=== PATIENT | female | born 1930 | race Caucasian/White ===

== ENCOUNTER 2016-05-07 14:03 | Emergency (ER) | payer MEDICARE ==
[2016-05-07 14:13] VITALS: TEMP 98.8
--- NOTE | 2016-05-07 14:51 | ED ---
General Adult HPI - General Chief complaint: Fall Stated complaint: Fall Time Seen by Provider: 05/07/16 14:19 Source: patient, EMS, RN notes reviewed Mode of arrival: EMS Limitations: no limitations - History of Present Illness Initial comments: Patient is a pleasant 86-year-old female presenting to the emergency department following a fall. Fall occurred 3 days ago. Symptoms of discomfort has progressively worsened since that time. Patient was unable to get up on her own today. Patient did need assistance going to the restroom. Patient has discomfort of the left back. No difficulty in breathing. Discomfort does increase and greatly with movement. There is question if patient had blood with using the restroom today. No abdominal pain. No reported head injury or loss of consciousness. Patient denies dyspnea - Related Data Home Medications Medication Instructions Recorded Confirmed Atorvastatin Calcium [Lipitor] 10 mg PO DAILY 05/07/16 05/07/16 Carbidopa-Levodopa 25-100 mg 1 tab PO DAILY 05/07/16 05/07/16 [Sinemet 25-100] Doxycycline Hyclate [Vibramycin] 100 mg PO BID 05/07/16 05/07/16 Levothyroxine Sodium [Synthroid] 100 mcg PO DAILY 05/07/16 05/07/16 Losartan [Cozaar] 50 mg PO DAILY 05/07/16 05/07/16 Meloxicam [Mobic] 7.5 mg PO BID 05/07/16 05/07/16 SILVER sulfADIAZINE CREAM 1 applic TOPICAL DAILY 05/07/16 05/07/16 [Silvadene Cream] Vit C/E/Zn/Coppr/Lutein/Zeaxan 1 cap PO DAILY 05/07/16 05/07/16 [Preservision Areds 2 Softgel] metroNIDAZOLE 0.75% CREAM 1 applic TOPICAL BID 05/07/16 05/07/16 Previous Rx's Medication Instructions Recorded traMADol HCl [Ultram] 50 mg PO Q6H PRN #20 tab 05/07/16 Allergies Allergy/AdvReac Type Severity Reaction Status Date / Time No Known Allergies Allergy Unverified 05/07/16 14:41 Review of Systems ROS Statement: Those systems with pertinent positive or pertinent negative responses have been documented in the HPI. ROS Other: All systems not noted in ROS Statement are negative. Constitutional: Denies: fever, chills Eyes: Denies: eye pain ENT: Denies: ear pain Respiratory: Denies: cough, dyspnea Cardiovascular: Denies: chest pain Endocrine: Denies: fatigue Gastrointestinal: Denies: vomiting Genitourinary: Denies: dysuria Musculoskeletal: Reports: back pain Skin: Reports: rash (Bruising) Neurological: Denies: headache Past Medical History Past Medical History: Unable to Obtain History of Any Multi-Drug Resistant Organisms: None Reported Past Surgical History: Unable to Obtain, Bladder Surgery Past Psychological History: No Psychological Hx Reported Smoking Status: Never smoker General Exam Limitations: no limitations General appearance: alert, in no apparent distress Head exam: Present: atraumatic Eye exam: Present: normal appearance, PERRL ENT exam: Present: normal oropharynx Neck exam: Present: normal inspection Respiratory exam: Present: normal lung sounds bilaterally, chest wall tenderness (Left posterior lateral ribs) Cardiovascular Exam: Present: regular rate, normal rhythm GI/Abdominal exam: Present: soft. Absent: tenderness Extremities exam: Present: normal inspection, full ROM. Absent: tenderness Back exam: Present: tenderness (Left lower posterior ribs with tenderness and ecchymosis. Mild tenderness lower thoracic spine.) Neurological exam: Present: alert. Absent: motor sensory deficit Psychiatric exam: Present: normal affect, normal mood Skin exam: Absent: rash Course Vital Signs 05/07/16 05/07/16 14:06 14:27 Temperature 98.8 F Pulse Rate 63 Respiratory 22 22 Rate Blood Pressure 161/82 O2 Sat by Pulse 98 Oximetry EKG Findings - EKG Comments: EKG Findings:: Sinus rhythm at 93 with premature supraventricular complexes. ID 152. QRS 86. QT 362. QTC 450. Normal axis. Normal QRS. Nonspecific ST- T. Medical Decision Making - Medical Decision Making Patient reexamined and resting comfortable in bed. Patient still has some discomfort. Potassium replaced. Case was discussed in detail with Dr. Dr. Lamar covering for Dr. Dr. Beebe who does agree with discharge. Patient and family updated on results and need for follow-up. - Lab Data Result diagrams: 05/07/16 15:35 05/07/16 15:35 Lab Results 05/07/16 05/07/16 05/07/16 Range/Units 14:55 15:00 15:35 WBC 14.6 H (3.8-10.6) k/uL RBC 5.33 (3.80-5.40) m/uL Hgb 16.0 (11.4-16.0) gm/dL Hct 47.7 H (34.0-46.0) % MCV 89.5 (80.0-100.0) fL MCH 29.9 (25.0-35.0) pg MCHC 33.5 (31.0-37.0) g/dL RDW 13.9 (11.5-15.5) % Plt Count 198 (150-450) k/uL PT (9.0-12.0) sec INR (<1.1) APTT (22.0-30.0) sec Sodium (137-145) mmol/L Potassium (3.5-5.1) mmol/L Chloride (98-107) mmol/L Carbon Dioxide (22-30) mmol/L Anion Gap mmol/L BUN (7-17) mg/dL Creatinine (0.52-1.04) mg/dL Est GFR (MDRD) Af Amer (>60 ml/min/1.73 sqM) Est GFR (MDRD) Non-Af (>60 ml/min/1.73 sqM) Glucose (74-99) mg/dL Calcium (8.4-10.2) mg/dL Total Bilirubin (0.2-1.3) mg/dL AST (14-36) U/L ALT (9-52) U/L Alkaline Phosphatase (38-126) U/L Total Protein (6.3-8.2) g/dL Albumin (3.5-5.0) g/dL Urine Color Yellow Urine Appearance Clear (Clear) Urine pH 5.5 (5.0-8.0) Ur Specific [place] 1.018 (1.001-1.035) Urine Protein 2+ H (Negative) Urine Glucose (UA) Negative (Negative) Urine Ketones Trace H (Negative) Urine Blood Small H (Negative) Urine Nitrate Negative (Negative) Urine Bilirubin Negative (Negative) Urine Urobilinogen <2.0 (<2.0) mg/dL Ur Leukocyte Esterase Trace H (Negative) Urine RBC 1 (0-5) /hpf Urine WBC 5 (0-5) /hpf Ur Squamous Epith Cells 1 (0-4) /hpf Amorphous Sediment Occasional H (None) /hpf Hyaline Casts 1 (0-2) /lpf Urine Mucus Occasional H (None) /hpf Stool Occult Blood Negative (Negative) 05/07/16 05/07/16 Range/Units 15:35 15:57 WBC (3.8-10.6) k/uL RBC (3.80-5.40) m/uL Hgb (11.4-16.0) gm/dL Hct (34.0-46.0) % MCV (80.0-100.0) fL MCH (25.0-35.0) pg MCHC (31.0-37.0) g/dL RDW (11.5-15.5) % Plt Count (150-450) k/uL PT 10.8 (9.0-12.0) sec INR 1.1 (<1.1) APTT 23.8 (22.0-30.0) sec Sodium 146 H (137-145) mmol/L Potassium 3.0 L* (3.5-5.1) mmol/L Chloride 102 (98-107) mmol/L Carbon Dioxide 24 (22-30) mmol/L Anion Gap 20 mmol/L BUN 48 H (7-17) mg/dL Creatinine 0.90 (0.52-1.04) mg/dL Est GFR (MDRD) Af Amer >60 (>60 ml/min/1.73 sqM) Est GFR (MDRD) Non-Af 59 (>60 ml/min/1.73 sqM) Glucose 124 H (74-99) mg/dL Calcium 9.2 (8.4-10.2) mg/dL Total Bilirubin 1.7 H (0.2-1.3) mg/dL AST 50 H (14-36) U/L ALT 36 (9-52) U/L Alkaline Phosphatase 56 (38-126) U/L Total Protein 7.6 (6.3-8.2) g/dL Albumin 4.3 (3.5-5.0) g/dL Urine Color Urine Appearance (Clear) Urine pH (5.0-8.0) Ur Specific [place] (1.001-1.035) Urine Protein (Negative) Urine Glucose (UA) (Negative) Urine Ketones (Negative) Urine Blood (Negative) Urine Nitrate (Negative) Urine Bilirubin (Negative) Urine Urobilinogen (<2.0) mg/dL Ur Leukocyte Esterase (Negative) Urine RBC (0-5) /hpf Urine WBC (0-5) /hpf Ur Squamous Epith Cells (0-4) /hpf Amorphous Sediment (None) /hpf Hyaline Casts (0-2) /lpf Urine Mucus (None) /hpf Stool Occult Blood (Negative) - Radiology Data Radiology results: report reviewed (Computed tomography scan abdomen and pelvis shows no acute postherpetic findings.), image reviewed (Chest x-ray left rib x- rays show no definite fracture or pneumothorax. X-ray of the thoracic spine shows degenerative changes without acute process.) Disposition Clinical Impression: Fall, Rib contusion Disposition: HOME SELF-CARE Condition: Stable Instructions: Fall Prevention for Older Adults (ED), Rib Contusion (ED), Rib Fracture (ED) Additional Instructions: Please follow-up with primary care physician in the next day or 2 for recheck. Return for difficulty breathing, unable to walk or take care of herself, worsening symptoms or other concerns. Continue Tylenol if needed. Prescriptions: traMADol HCl [Ultram] 50 mg PO Q6H PRN #20 tab PRN Reason: Pain/Discomfort Referrals: Ramón Beebe MD [Primary Care Provider] - 1-2 days
[2016-05-07] MEDS ORDERED: RX INFO: IV CONTRAST WAS GIVEN 1 EACH MISC MISCELLANE PRN (15:12)
[2016-05-07] MEDS ORDERED: SODIUM CHLORIDE 0.9% 1,000 ML IV STA (15:12)
[2016-05-07] MEDS ORDERED: MORPHINE SULFATE 2 MG/ML SYRINGE IVP STA (15:12)
--- NOTE | 2016-05-07 15:27 | XR ---
EXAMINATION TYPE: XR thoracic spine complete DATE OF EXAM ORDERED: 05/07/2016 3:22 PM HISTORY: Pain following trauma. COMPARISON: None. FINDINGS: There is a moderately severe S-shaped scoliosis convex to the right in the thoracic spine and to the left at the thoracolumbar junction. There is extensive spondylosis deformans. Alignment re nicolasa normal. No definite fractures are seen. Paraspinal soft tissues appear normal. Several of the p edicles are difficult to visualize due to extensive osteoporotic change. IMPRESSION: 1. NO ACUTE OSSEOUS LESION. 2. MODERATE SCOLIOSIS WITH ADVANCED DEGENERATIVE CHANGE.
--- NOTE | 2016-05-07 15:28 | XR ---
EXAMINATION TYPE: XR ribs LT w pa chest x-ray DATE OF EXAM ORDERED: 05/07/2016 3:22 PM HISTORY: Pain following trauma. COMPARISON: None. FINDINGS: There are bilateral shoulder prostheses in place. Once again note is made of extensive scoliosis. There is atelectatic change within the right lung base. Lungs are otherwise clear. Pleural spaces are clear. Heart is mildly prominent. There is diffuse osteopenia likely on the basis of osteoporosis. No displaced rib fracture is seen. T here is no evidence of pneumothorax. There is extensive calcification of the enterprise aorta. IMPRESSION: I DO NOT SEE A DISPLACED RIB FRACTURE AT THIS TIME.
[2016-05-07 15:58] LABS: ALT 36 U/L (9-52); AST 50 U/L (14-36); Alkaline Phosphatase 56 U/L (38-126); Anion Gap 20 mmol/L; Blood Urea Nitrogen 48 mg/dL (7-17); CHCM 34.9; Calcium 9.2 mg/dL (8.4-10.2); Carbon Dioxide 24 mmol/L (22-30); Chloride 102 mmol/L (98-107); Glucose 124 mg/dL (74-99); HCT 47.7 % (34.0-46.0); Immature Gran Flag Moderate; MCH 29.9 pg (25.0-35.0); MCHC 33.5 g/dL (31.0-37.0); MCV 89.5 fL (80.0-100.0); Non-African American GFR(MDRD) 59 (>60 ml/min/1.73 sqM); RBC 5.33 m/uL (3.80-5.40); RDW 13.9 % (11.5-15.5); Sodium 146 mmol/L (137-145); Total Bilirubin 1.7 mg/dL (0.2-1.3); Total Protein 7.6 g/dL (6.3-8.2); WBC 14.6 k/uL (3.8-10.6); WBC (Perox) 13.89
[2016-05-07] MEDS ORDERED: SODIUM CHLORIDE 0.9% 500 ML IV STA (16:10)
[2016-05-07] MEDS ORDERED: POTASSIUM CHLORIDE ER 20 MEQ TAB.ER PO STA (16:11)
[2016-05-07 16:39] LABS: INR 1.1 (<1.1); Partial Thromboplastin Time 23.8 sec (22.0-30.0); Prothrombin Time 10.8 sec (9.0-12.0)
[2016-05-07 16:45] LABS: Amorphous Sediment,Urine Occasional /hpf; Appearance,Urine Clear (Clear); Bilirubin,Urine Negative (Negative); Glucose,Urine (UA) Negative (Negative); Ketones,Urine Trace (Negative); Leukocyte Esterase,Urine Trace (Negative); Mucus,Urine Occasional /hpf; Nitrite,Urine Negative (Negative); PH, Urine 5.5 (5.0-8.0); Particle Count 9607; Protein,Urine 2+ (Negative); RBC,Urine 1 /hpf (0-5); Specific Gravity,Urine 1.018 (1.001-1.035); Squamous Epithelial Cell,Urine 1 /hpf (0-4); UA Billing (MACRO vs. MICRO) MICRO; Urobilinogen,Urine <2.0 mg/dL (<2.0); WBC,Urine 5 /hpf (0-5)
--- NOTE | 2016-05-07 17:03 | CT ---
EXAMINATION TYPE: CT abdomen pelvis w con DATE OF EXAM: 05/07/2016 4:54 PM HISTORY: Fall with injury to left back. CT DLP: 536.00mGycm Automated Exposure Control for Dose Reduction was Utilized. CONTRAST: CT scan of the abdomen and pelvis is performed without oral but with IV Contrast, patient injected wi th 80 mL of Omnipaque 300. COMPARISON: None. FINDINGS: LUNG BASES: Cardiomegaly is present. There is mild bronchiectasis with mucus plugging and scattered a telectatic change in the right lung base. LIVER/GB: No significant abnormality is appreciated. PANCREAS: No significant abnormality is seen. SPLEEN: No significant abnormality is seen. ADRENALS: No significant abnormality is seen. KIDNEYS: Only delayed phase imaging is performed. No hydronephrosis is present bilaterally. BOWEL: No suspicious small or large bowel dilatation is present UTERUS/ADNEXA: Heterogeneous anteverted uterus is noted. LYMPH NODES: No greater than 1cm abdominal or pelvic lymph nodes are appreciated. OSSEOUS STRUCTURES: Osseous structures are demineralized. There is grade 1 anterolisthesis of L3 on L 4 and L4 on L5. There is moderate multilevel disc space narrowing and vacuum disc phenomenon with mil d to moderate multilevel spurring. There are multilevel uncovertebral facet degenerative changes thro ughout the mid to lower lumbar spine causing spinal canal stenosis at L3-L4 and L4-L5 levels. Underly ing levoconvex scoliosis is present. There is advanced joint space loss in both hips. OTHER: There is fairly severe calcified atherosclerotic change of aorta and branch vessels. IMPRESSION: No acute posttraumatic finding is identified in the abdomen or pelvis.
[2016-05-07] MEDS ORDERED: MORPHINE SULFATE 4 MG/ML SYRINGE IV STA (17:12)
[2016-05-07] MEDS ORDERED: traMADol 50 MG STARTER PACK 3 TAB BTL PO STA (17:13)
[2016-05-07 17:17] LABS: Add Differential Manual Differential
[2016-05-07 17:20] LABS: Nucleated Red Blood Cells 0 /100 WBC (0-0); Total Cells Counted 100
[2016-05-07 17:21] LABS: Manual Review Performed; RBC Morphology Normal; Toxic Granulation Present; Toxic Vacuolation Present
[2016-05-07 18:10] VITALS: BP 179/65; PULSE 75; RESP 18
== END 2016-05-07 18:10 | disposition home or self-care (01) ==
LOC: EC 14:03
DX: S20.212A Contusion of left front wall of thorax, initial encounter (principal); W19.XXXA Unspecified fall, initial encounter; M41.9 Scoliosis, unspecified; Z79.899 Other long term (current) drug therapy
CPT/HCPCS: 36415; 93005; 80053; 85025; 85610; 85730; 82272; 81001; 71101; 72072; 74177; 99284; 96374; 96376; 96361; J2270 ×2; Q9967